=== PATIENT | male | born 1945 | race Caucasian/White ===

== ENCOUNTER 2021-05-25 16:12 | Inpatient (IN) | payer MEDICARE, OTHER ==
[~2021-05-25] VITALS: Ht 167.6 cm; Wt 84.8 kg
[2021-05-25] MEDS ORDERED: MAG HYDROX/AL HYDROX/SIMETH 30 ML UDC PO PRN (17:00)
[2021-05-25] MEDS ORDERED: LORAZEPAM 0.5 MG TABLET PO PRN (17:00)
[2021-05-25] MEDS ORDERED: MAGNESIUM HYDROXIDE 30 ML UDC PO PRN (17:00)
[2021-05-25] MEDS ORDERED: BLOOD SUGAR DIAGNOSTIC 1 EACH STRIP IN ONE (17:00)
[2021-05-25] MEDS ORDERED: ACETAMINOPHEN 325 MG TABLET PO PRN (17:00)
[2021-05-25] MEDS ORDERED: CHOL200010 PO (17:03)
[2021-05-25] MEDS ORDERED: CALC500T52 PO (17:03)
[2021-05-25] MEDS ORDERED: CYCL10TA9 PO (17:03)
[2021-05-25] MEDS ORDERED: DOCU100C36 PO (17:03)
[2021-05-25] MEDS ORDERED: LISI40TA13 PO (17:03)
[2021-05-25] MEDS ORDERED: TAMS-12 PO (17:03)
[2021-05-25] MEDS ORDERED: AMLO-212 PO (17:03)
--- NOTE | 2021-05-25 18:45 | NUR ---
RN-ADMISSION NOTES ADMITTED A 76 Y.O LATVIAN MALE PATIENT FROM [facility]. PATIENT WAS ON 5150 HOLD FOR DTO AND GD ADULT. PATIENT IS UNDER THE CARE OF DR. SHELL ( PSYCHIATRIST) DR. ARANGO ( CARDIAC/VASCULAR SONOGRAPHER) . BOTH MD WAS MADE AWARE OF THE ADMISSION.PATIENT IS LATVIAN SPEAKING ONLY, A/O TO NAME AND PLACE. LATVIAN SPEAKING STAFF DID INTERPRET DURING THE ADMISSION PROCESS. PATIENT IS A POOR HISTORIAN. PATIENT'S ELI WAS MADE AWARE OF THE ADMISSION. CONTRABAND AND FULL BODY ASSESSMENT WAS DONE. MRSA SWAB WAS ALSO DONE AND SEND TO LAB.PATIENT WAS ORIENTED IN THE UNIT AND UNIT POLICIES. WALKER WAS GIVEN TO THE PATIENT AND INSTRUCTED TO USE ALL THE TIME TO PREVENT FALL. WILL ENDORSE TO THE INCOMING NURSE FOR CONTINUITY OF CARE AND ADMISSION PROCESS.
[2021-05-25] MEDS ORDERED: DOCUSATE SODIUM 100 MG CAPSULE PO PRN (19:00)
[2021-05-25 20:00] VITALS: BP 150/78
[2021-05-25] MEDS ORDERED: LISINOPRIL (20MG) 20 MG TABLET PO SCH (20:00)
[2021-05-25] MEDS: LISINOPRIL (20MG) 20 MG TABLET PO SCH (20:10)
[2021-05-25] MEDS: CYCLOBENZAPRINE 10 MG TABLET PO SCH (21:40)
[2021-05-25 23:00] VITALS: BP 132/78
[2021-05-26 08:00] VITALS: BP 110/56
[2021-05-26] MEDS: TAMSULOSIN 0.4 MG CAP.SR.24H PO SCH (08:28)
[2021-05-26] MEDS: CHOLECALCIFEROL 1,000 UNIT TABLET (VIT D3) PO SCH (08:28)
[2021-05-26] MEDS: LISINOPRIL (20MG) 20 MG TABLET PO SCH ×2 (08:29→21:09)
[2021-05-26] MEDS: AMLODIPINE BESYLATE 5 MG TABLET PO SCH (08:29)
[2021-05-26] MEDS ORDERED: Medication Not On Formulary EA (Lisinopril 40 MG) PO SCH (09:00)
--- NOTE | 2021-05-26 09:21 | NUR ---
NIESHA Initial Discharge Plan Patient lives at home with located at [address] [place] [id number]; ([phone]). Patient would want to return back home. NIESHA will work with the MD and family to help coordinate appropriate discharge.
--- NOTE | 2021-05-26 09:55 | NUR ---
NIESHA Family Contact: NIESHA contacted patient's Sixto ([phone]) to gather collateral, however, does not speak Guyanese. NIESHA had Corry CONNORS present to translate with family. Family wants pt back home upon discharge.
[2021-05-26 10:32] LABS: CHOLESTEROL 157 mg/dL (<200); HDL CHOLESTEROL 40 mg/dL (40-60); LDL 104 mg/dL (0-99); TRIGLYCERIDES 54 mg/dL (30-150)
[2021-05-26 10:41] LABS: ALBUMIN 3.2 g/dL (3.4-5.0); BILIRUBIN,TOTAL 0.5 mg/dL (0.2-1.0); CALCIUM, SERUM 8.1 mg/dL (8.5-10.1); CREATININE 0.9 mg/dL (0.6-1.3); POTASSIUM 4.2 mmol/L (3.5-5.1); TOTAL PROTEIN, SERUM 6.7 g/dL (6.4-8.2)
[2021-05-26 16:00] VITALS: BP 141/83
[2021-05-26] MEDS: FLUVOXAMINE MALEATE 50 MG TABLET PO SCH (16:10)
[2021-05-26] MEDS: risperiDONE 1 MG TABLET PO SCH (16:10)
[2021-05-26] MEDS: CALCIUM CARBONATE (1250) 500 MG TABLET PO SCH (17:24)
[2021-05-26 20:00] VITALS: BP 124/72
[2021-05-26] MEDS: CYCLOBENZAPRINE 10 MG TABLET PO SCH (21:08)
[2021-05-27] MEDS: risperiDONE 1 MG TABLET PO SCH ×2 (03:00→14:05)
--- NOTE | 2021-05-27 03:20 | NUR ---
GPS RN NOTES: 0300 RISPERDAL 1MG NOT ADMINISTERED BECAUSE IT'S BEEN RESCHEDULED FOR 0800 AND 2200.
[2021-05-27 08:00] VITALS: BP 135/79
[2021-05-27] MEDS: TAMSULOSIN 0.4 MG CAP.SR.24H PO SCH (08:31)
[2021-05-27] MEDS: FLUVOXAMINE MALEATE 50 MG TABLET PO SCH ×3 (08:31→16:03)
[2021-05-27] MEDS: CHOLECALCIFEROL 1,000 UNIT TABLET (VIT D3) PO SCH (08:31)
[2021-05-27] MEDS: LISINOPRIL (20MG) 20 MG TABLET PO SCH ×2 (08:31→20:35)
[2021-05-27] MEDS: AMLODIPINE BESYLATE 5 MG TABLET PO SCH (08:32)
[2021-05-27 16:00] VITALS: BP 131/67
[2021-05-27] MEDS: CALCIUM CARBONATE (1250) 500 MG TABLET PO SCH (16:39)
[2021-05-27 20:00] VITALS: BP 145/77
[2021-05-27] MEDS: CYCLOBENZAPRINE 10 MG TABLET PO SCH (21:07)
[2021-05-28] MEDS: risperiDONE 1 MG TABLET PO SCH ×2 (02:20→16:08)
[2021-05-28 08:00] VITALS: BP 104/53
[2021-05-28] MEDS: AMLODIPINE BESYLATE 5 MG TABLET PO SCH (08:05)
[2021-05-28] MEDS: LISINOPRIL (20MG) 20 MG TABLET PO SCH ×2 (08:05→21:13)
[2021-05-28] MEDS: FLUVOXAMINE MALEATE 50 MG TABLET PO SCH ×3 (08:09→16:33)
[2021-05-28] MEDS: TAMSULOSIN 0.4 MG CAP.SR.24H PO SCH (08:09)
[2021-05-28] MEDS: CHOLECALCIFEROL 1,000 UNIT TABLET (VIT D3) PO SCH (08:09)
[2021-05-28 16:00] VITALS: BP 145/63
[2021-05-28] MEDS: CALCIUM CARBONATE (1250) 500 MG TABLET PO SCH (16:34)
[2021-05-28 19:59] VITALS: BP 145/79
[2021-05-28 20:10] VITALS: BP 145/79
[2021-05-28] MEDS: CYCLOBENZAPRINE 10 MG TABLET PO SCH (21:18)
[2021-05-29] MEDS: risperiDONE 1 MG TABLET PO SCH ×2 (03:08→15:27)
[2021-05-29 08:00] VITALS: BP 123/62
[2021-05-29] MEDS: LISINOPRIL (20MG) 20 MG TABLET PO SCH ×2 (08:51→21:07)
[2021-05-29] MEDS: FLUVOXAMINE MALEATE 50 MG TABLET PO SCH ×3 (08:51→17:52)
[2021-05-29] MEDS: TAMSULOSIN 0.4 MG CAP.SR.24H PO SCH (08:51)
[2021-05-29] MEDS: CHOLECALCIFEROL 1,000 UNIT TABLET (VIT D3) PO SCH (08:51)
[2021-05-29] MEDS: AMLODIPINE BESYLATE 5 MG TABLET PO SCH (08:52)
[2021-05-29 16:00] VITALS: BP 122/61
[2021-05-29] MEDS: CALCIUM CARBONATE (1250) 500 MG TABLET PO SCH (17:53)
[2021-05-29 19:42] VITALS: BP 130/64
[2021-05-29] MEDS: CYCLOBENZAPRINE 10 MG TABLET PO SCH (21:48)
--- NOTE | 2021-05-29 23:22 | NUR ---
RN NOTES : PT. REFUSED WEEKLY SKIN REASSESSMENT AND PHOTOS TAKEN, ENCOURAGED X3 , RISKS AND BENEFITS EXPLINED ,PT. STRONGLY REFUSED ,PT. BEHAVIOR UNCCOERTIVE ,EASILY AGITATED AT THIS TIME.
[2021-05-30] MEDS: risperiDONE 1 MG TABLET PO SCH ×2 (03:03→15:03)
[2021-05-30 08:00] VITALS: BP 116/79
[2021-05-30] MEDS: TAMSULOSIN 0.4 MG CAP.SR.24H PO SCH (08:20)
[2021-05-30] MEDS: FLUVOXAMINE MALEATE 50 MG TABLET PO SCH ×3 (08:20→16:53)
[2021-05-30] MEDS: CHOLECALCIFEROL 1,000 UNIT TABLET (VIT D3) PO SCH (08:20)
[2021-05-30] MEDS: AMLODIPINE BESYLATE 5 MG TABLET PO SCH (08:21)
[2021-05-30] MEDS: LISINOPRIL (20MG) 20 MG TABLET PO SCH ×2 (08:21→21:18)
--- NOTE | 2021-05-30 09:00 | NUR ---
RN NOTE- PT ALERT ORIENTED INTERACTIVE CALM DIRECTABLE. DENIES SI HI MED COMPLIANT, NEEDS ATTENDED
[2021-05-30 16:00] VITALS: BP 101/61
[2021-05-30] MEDS: CALCIUM CARBONATE (1250) 500 MG TABLET PO SCH (17:13)
[2021-05-30 20:00] VITALS: BP 122/68
[2021-05-30] MEDS: CYCLOBENZAPRINE 10 MG TABLET PO SCH (21:18)
[2021-05-30] MEDS: TEMAZEPAM 7.5 MG CAPSULE PO PRN (23:52)
[2021-05-31] MEDS: risperiDONE 1 MG TABLET PO SCH ×2 (03:05→15:12)
[2021-05-31 08:00] VITALS: BP 125/68
[2021-05-31] MEDS: FLUVOXAMINE MALEATE 50 MG TABLET PO SCH ×3 (08:31→16:18)
[2021-05-31] MEDS: CHOLECALCIFEROL 1,000 UNIT TABLET (VIT D3) PO SCH (08:31)
[2021-05-31] MEDS: TAMSULOSIN 0.4 MG CAP.SR.24H PO SCH (08:32)
[2021-05-31] MEDS: LISINOPRIL (20MG) 20 MG TABLET PO SCH ×2 (08:33→21:35)
[2021-05-31] MEDS: AMLODIPINE BESYLATE 5 MG TABLET PO SCH (08:33)
--- NOTE | 2021-05-31 09:00 | NUR ---
RN NOTE- PT ALERT ORIENTED INTERACTIVE CALM DIRECTABLE. DENIES SI HI MED COMPLIANT, NEEDS ATTENDED
--- NOTE | 2021-05-31 11:35 | NUR ---
NIESHA Coordination of Care: Patient will follow up with (Motorboat Mechanic) Dr. Parra located at [facility] located at [address] [place] [address]; ([phone]) on June 10 at 10AM and will monitor and provide patients psychotropic medications.
[2021-05-31 16:00] VITALS: BP 103/63
[2021-05-31] MEDS: CALCIUM CARBONATE (1250) 500 MG TABLET PO SCH (17:01)
[2021-05-31 20:26] VITALS: BP 125/67
[2021-05-31] MEDS: CYCLOBENZAPRINE 10 MG TABLET PO SCH (21:35)
[2021-05-31] MEDS: TEMAZEPAM 7.5 MG CAPSULE PO PRN (23:41)
--- NOTE | 2021-05-31 23:41 | NUR ---
GPS-RN NOTES: INSOMNIA PATIENT C/O INABILITY TO SLEEP. PRN RESTORIL 15MG PO GIVEN ORDERED. WILL CONTINUE TO MONITOR.
[2021-06-01] MEDS: risperiDONE 1 MG TABLET PO SCH ×2 (03:50→15:20)
[2021-06-01 08:00] VITALS: BP 145/78
[2021-06-01] MEDS: TAMSULOSIN 0.4 MG CAP.SR.24H PO SCH (09:23)
[2021-06-01] MEDS: AMLODIPINE BESYLATE 5 MG TABLET PO SCH (09:23)
[2021-06-01] MEDS: FLUVOXAMINE MALEATE 50 MG TABLET PO SCH ×3 (09:23→16:44)
[2021-06-01] MEDS: CHOLECALCIFEROL 1,000 UNIT TABLET (VIT D3) PO SCH (09:23)
[2021-06-01] MEDS: LISINOPRIL (20MG) 20 MG TABLET PO SCH ×2 (09:24→21:01)
--- NOTE | 2021-06-01 15:03 | NUR ---
Court Hearing: Patient's court hearing for [id number] was today and it was upheld for GD.
[2021-06-01 16:00] VITALS: BP 127/65
[2021-06-01] MEDS: CALCIUM CARBONATE (1250) 500 MG TABLET PO SCH (17:14)
[2021-06-01 20:00] VITALS: BP 151/71
[2021-06-01] MEDS: CYCLOBENZAPRINE 10 MG TABLET PO SCH (22:04)
[2021-06-02] MEDS: risperiDONE 1 MG TABLET PO SCH ×2 (02:26→16:42)
[2021-06-02 08:00] VITALS: BP 136/79
[2021-06-02] MEDS: CHOLECALCIFEROL 1,000 UNIT TABLET (VIT D3) PO SCH (08:25)
[2021-06-02] MEDS: TAMSULOSIN 0.4 MG CAP.SR.24H PO SCH (08:25)
[2021-06-02] MEDS: FLUVOXAMINE MALEATE 50 MG TABLET PO SCH ×3 (08:26→16:42)
[2021-06-02] MEDS: AMLODIPINE BESYLATE 5 MG TABLET PO SCH (08:26)
[2021-06-02] MEDS: LISINOPRIL (20MG) 20 MG TABLET PO SCH ×2 (08:26→21:00)
[2021-06-02 16:00] VITALS: BP 144/70
[2021-06-02] MEDS: CALCIUM CARBONATE (1250) 500 MG TABLET PO SCH (17:07)
[2021-06-02 19:48] VITALS: BP 121/56
[2021-06-02] MEDS: CYCLOBENZAPRINE 10 MG TABLET PO SCH (21:22)
--- NOTE | 2021-06-02 22:11 | NUR ---
GPS RN NOTE: Withheld BP Lisinopril due to low diastolic BP.
[2021-06-03] MEDS: risperiDONE 1 MG TABLET PO SCH ×2 (04:05→14:11)
[2021-06-03 08:00] VITALS: BP 149/82
[2021-06-03] MEDS: TAMSULOSIN 0.4 MG CAP.SR.24H PO SCH (08:00)
[2021-06-03] MEDS: CHOLECALCIFEROL 1,000 UNIT TABLET (VIT D3) PO SCH (08:00)
[2021-06-03] MEDS: LISINOPRIL (20MG) 20 MG TABLET PO SCH (08:01)
[2021-06-03] MEDS: AMLODIPINE BESYLATE 5 MG TABLET PO SCH (08:01)
[2021-06-03] MEDS: FLUVOXAMINE MALEATE 50 MG TABLET PO SCH ×3 (08:01→16:10)
--- NOTE | 2021-06-03 08:11 | NUR ---
SW Discharge Note: Patient will be discharged home located at [address] [place] [id number]; ([phone]). Patients daughter Jami ([phone]) will cotton picker pt at 12PM. Patients is aware and agreeable. Patient appears to be happy to be going back home. Patient is alert and oriented x2. Patient denies suicidal or homicidal ideation. Patient denies visual/auditory hallucinations. Patient will follow up with (Rotary Peel Oven Tender) Dr. Parra located at [facility] located at [address] [place] [address]; ([phone]) on June 10 at 10AM and will monitor and provide patients psychotropic medications. Patient presents with euthymic mood and congruent affect.
--- NOTE | 2021-06-03 09:22 | NUR ---
Dr. Pang gave an order to D/C hold and D/C home and to follow up with psych and medical doctors.
--- NOTE | 2021-06-03 10:33 | NUR ---
Constantino Naylor NP made aware of the discharge and provided a prescriptions.
[2021-06-03 16:00] VITALS: BP 129/65
[2021-06-03] MEDS: CALCIUM CARBONATE (1250) 500 MG TABLET PO SCH (17:00)
--- NOTE | 2021-06-03 18:38 | NUR ---
GPS CLINICAL TRIAL ASSOCIATE NOTES PATIENT DISCHARGED TO HOME TODAY PER GPS PROTOCOL. PATIENT WAS PICKED UP BY HIS DAUGHTER MERCEDES. DENIES SI/HI AUDITORY/VISUAL HALLUCINATION AT THIS TIME. NOT IN ACUTE DISTRESS. DISCHARGE INSTRUCTION AND EDUCATION PROVIDED TO DAUGHTER. CHARGE NURSE AND MD AWARE OF DISCHARGE.
== END 2021-06-03 18:30 | disposition home or self-care (01) | DRG 885 ==
LOC: GPS 16:22
PROVIDERS: ADMIT Psychiatry & Neurology Psychiatry; ATTEND Internal Medicine
DX: F29 Unspecified psychosis not due to a substance or known physiological condition (principal); F41.9 Anxiety disorder, unspecified; E66.9 Obesity, unspecified; F32.A Depression, unspecified; F25.9 Schizoaffective disorder, unspecified; I10 Essential (primary) hypertension; N40.0 Benign prostatic hyperplasia without lower urinary tract symptoms; Z73.6 Limitation of activities due to disability; R53.1 Weakness; Z68.30 Body mass index [BMI] 30.0-30.9, adult
CPT/HCPCS: 36415; 80053-TC; 80061-TC; 87081-TC; 97112-TC; 97116-TC; 97530-TC